=== PATIENT | female | born 1935 | race Caucasian/White ===

== ENCOUNTER 2016-08-28 10:04 | Emergency (ER) | payer OTHER ==
[2016-08-28 10:31] LABS: MANUAL DIFF NEEDED? NO
--- NOTE | 2016-08-28 10:34 | ED EKG INTERP ---
EKG Interpretation - EKG Time of EKG reading by physician:: 10:14 EKG Read and Signed by:: Jovany Landeros EKG Interpretation (*Must complete 3 of following elements*): Abnormal Rate: 47 Rhythm: sinus kev Drums: normal QRS: normal Attestation - Scribe Verification/Attestation Scribe:: Eloisa Dash Acting as Scribe for:: Jovany Landeros Scribe documention review:: This chart was documented by a scribe and accurately reflects the service the provider performed and the decisions made by the provider.
[2016-08-28 10:37] LABS: BASO% 0.3 % (0.0-0.8); EOS# 0.13 X1000 (0.0-0.7); EOS% 1.9 % (0.0-10.0); HEMATOCRIT 41.2 % (37.0-47.0); HEMOGLOBIN 13.6 g/dL (12.0-16.0); LYMPH# 2.51 X1000 (1.2-3.4); LYMPH% 36.4 % (20.5-51.1); MCV 90.9 FL (81-99); MONO# 0.86 X1000 (0.11-0.59); MONO% 12.5 % (1.7-9.3); MPV 9.4 FL (7.4-10.4); NEUT% 48.9 % (42.2-75.2); PLT 237 X1000 (130-400); RBC 4.53 XMIL (4.2-5.4)
[2016-08-28 10:54] LABS: INR 1.05; PROTIME 10.7 Seconds (9.2-11.7); PTT 23.5 Seconds (22.0-36.0)
[2016-08-28 10:59] LABS: AGAP 4; ALBUMIN 3.9 g/dL (3.5-5.0); ALKALINE PHOSPHATASE 64 U/L (32-104); BUN 18 mg/dL (8-22); CALCIUM 9.1 mg/dL (8.8-10.2); CHLORIDE 106 mmol/L (98-107); CK PROFILE 46 U/L (24-173); COSMO 285; GOT 19 U/L (10-30); GPT 23 U/L (10-36); MAGNESIUM 1.8 mg/dL (1.5-2.7); POTASSIUM 4.3 mmol/L (3.5-5.1); SODIUM 142 mmol/L (136-145); TCO2 32 mmol/L (25-35); TOTAL BILIRUBIN 0.25 mg/dL (0.20-1.00); TOTAL PROTEIN 6.5 g/dL (6.3-8.3)
--- NOTE | 2016-08-28 11:04 | EKG Report ---
Test Performed on : 08/28/2016 10:14:39 AM Test Reason : Chest Pain Blood Pressure : / mmHG Vent. Rate : 047 BPM Atrial Rate : 047 BPM P-R Int : 152 ms QRS Dur : 096 ms QT Int : 450 ms P-R-T Axes : 063 -01 029 degrees QTc Int : 398 ms Sinus bradycardia. Otherwise normal ECG When compared with ECG of 30-NOV-2015 08:40, No significant change was found Unconfirmed Result
--- NOTE | 2016-08-28 11:09 | Diag Imaging Result Document ---
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 The heart size and pulmonary vascularity are within normal limits. Compared to 11/30/2015, there has been no significant change in the appearance of the chest. IMPRESSION: No evidence of acute disease.
--- NOTE | 2016-08-28 13:58 | PROVIDER DOCUMENTATION ---
HPI-Chest Pain <Pk Ozuna - Last Filed: 08/28/16 14:45> - General Source: patient, family - History of Present Illness-CP Location: reports: central Chest Pain Radiation: reports: no radiation Quality of Pain: reports: burning Severity in ED: mild Onset/Duration: 24 hours ago Timing: still present Nitro Today/Relief: no nitro taken today Aspirin Treatment Today: 325 mg x 1, provided by ED Similar Symptoms Previously?: Yes Recently Seen Here or By Another Healthcare Provider: No <Eloisa Dash - Last Filed: 08/28/16 14:47> - General Chief Complaint: Chest Pain Stated Complaint: ELEVATED BP/CP Time Seen by Provider: 08/28/16 13:53 Allergies/Adverse Reactions: Patient Allergies Allergy/AdvReac Type Severity Reaction Status Date / Time Iodinated Contrast Media - Allergy Severe SWELLING Verified 08/28/16 13:22 Oral and Home Medications: Home Medication List Medication Instructions Recorded Confirmed Last Taken Type Aspirin 81 mg PO DAILY 11/30/15 08/28/16 1 Week Ago History Atenolol 50 mg PO DAILY 11/30/15 08/28/16 08/28/16 07:30 History Calcium Carbonate/Vitamin D3 1 tab PO BID 11/30/15 08/28/16 08/28/16 07:30 History [Calcium + Vitamin D Tablet] [place]-3 Fatty Acids/Fish Oil [Fish 1 cap PO DAILY 11/30/15 08/28/16 08/28/16 07: 30 History Oil 1,000 mg Softgel] Raloxifene [Evista] 60 mg PO DAILY 11/30/15 08/28/16 08/28/16 07:30 History Simvastatin [Zocor] 20 mg PO HS 11/30/15 08/28/16 08/28/16 07:30 History Bismuth Subsalicylate [Maalox] 525 mg PO Q4-6H PRN PRN #1 08/28/16 Unknown Rx oral.susp Famotidine [Pepcid] 20 mg PO DAILY #20 tablet 08/28/16 Unknown Rx - History of Present Illness-CP Nature of Presenting Problem: Pt is a 81 yof that presents to er with cc of central chest pain since yesterday intermittent lasting 10 minutes at a time. Reports upon sitting up gets mild relief. Denies sob,orthopnea,edema,n,v. Quit smoking 40 years ago. Pt family also complains of pt low heart rate reports it normally is in the 60's and past two months it has been staying in the 40's. (Eloisa Dash) Review of Systems - Adult - REVIEW OF SYSTEMS - ADULT Constitutional: denies: chills, fever, fatique Eyes: reports: no symptoms reported Ears, Nose, Mouth & Throat: denies: ear pain, sinus problem, throat pain Cardiovascular: reports: see HPI, chest pain, irregular heart rate. denies: edema, orthopnea, palpitations, poor circulation, PND, syncope Respiratory: denies: cough, shortness of breath, wheezing Gastrointestinal: reports: no symptoms reported Genitourinary: reports: no symptoms reported Musculoskeletal: reports: no symptoms reported Integumentary: reports: no symptoms reported Neurological: reports: no symptoms reported Psychiatric: reports: no symptoms reported Endocrine: reports: no symptoms reported Hematologic/Lymphatic: reports: no symptoms reported Allergic/Immunologic: reports: no symptoms reported All Other Systems: Reviewed and Negative <Eloisa Dash - Last Filed: 08/28/16 14:47> Past History - Adult - PAST MEDICAL HISTORY-ADULT Review of Records: reports: Nursing Assessment Review, Medications Reviewed Cardiovascular: reports: HTN, hyperlipidemia - PRIOR SURGERIES/PROCEDURES Surgical/Procedure History: reports: hernia repair, other (arthroscopy) - IMMUNIZATION STATUS Childhood Immunizations: See Nurse Assessment Flu Vaccine: See Nurse Assessment - FAMILY HISTORY Family History: other (mother,brother and sister cardiac hx) - SOCIAL HISTORY Smoking: quit greater than 1 year, other Substance Use: none/never <Eloisa Dash - Last Filed: 08/28/16 14:47> Physical Exam-General - PHYSICAL EXAM-ADULT Initial Vital Signs Reviewed: Yes - CONSTITUTIONAL General Appearance: appears well, alert, no apparent distress - EYES Eyes: PERRL/EOMI - CARDIOVASCULAR Cardiovascular: bradycardia - GASTROINTESTINAL (ABDOMEN) Abdominal Exam: normal bowel sounds, non tender, soft, no organomegaly, no pulsatile mass - MUSCULOSKELETAL Extremity: normal range of motion, non-tender, no pedal edema, normal capillary refill - SKIN Integumentary: normal color, normal turgor, warm/dry - NEUROLOGIC Neurologic: grossly normal - PSYCHIATRIC Psych/Mental Status: normal mood/affect, normal thought content, normal thought process, oriented x 3 <Eloisa Dash - Last Filed: 08/28/16 14:47> Progress <Pk Ozuna - Last Filed: 08/28/16 14:45> - EKG 1 Time of EKG reading by physician:: 13:30 EKG Read and Signed by:: Jovany Landeros EKG Interpretation (*Must complete 3 of following elements*): Abnormal Rate: 48 Rhythm: sinus kev [place]: normal QRS: LVH (minmal voltage for lvh may be normal variant) SC Interval: normal <Eloisa Dash - Last Filed: 08/28/16 14:47> - PLAN OF CARE/RESULTS Progress/Plan/Lab Results: Orders Category Date Time Status CHEST-2 VIEWS [RAD] Stat Exams 08/28/16 10:18 Completed CBC WITH ELECTRONIC DIFF [HEME] Stat Lab 08/28/16 10:25 Completed CK PROFILE [SP CHEM] Stat Lab 08/28/16 10:25 Completed CK TOTAL [CHEM] Stat Lab 08/28/16 13:41 Received COMPREHENSIVE METABOLIC PANEL [CHEM] Stat Lab 08/28/16 10:25 Completed D-DIMER [CHEM] Stat Lab 08/28/16 10:25 Completed MAGNESIUM [CHEM] Stat Lab 08/28/16 10:25 Completed PRO B-NATRIURETIC PEPTIDE Stat Lab 08/28/16 10:25 Completed PROTIME WITH INR [COAG] Stat Lab 08/28/16 10:25 Completed PTT [COAG] Stat Lab 08/28/16 10:25 Completed TROPONIN T Stat Lab 08/28/16 10:25 Completed TROPONIN T Stat Lab 08/28/16 13:41 Received TROPONIN T Stat Lab 08/28/16 13:53 Ordered EKG [EKG] Stat Ther 08/28/16 10:18 Draft EKG [EKG] Stat Ther 08/28/16 13:27 Ordered Vital Signs - 24 hr 08/28/16 08/28/16 10:16 13:25 Temperature 98.5 F Pulse Rate 52 L 48 L Respiratory 18 20 Rate Blood Pressure 172/67 168/72 O2 Sat by Pulse 97 96 Oximetry Laboratory Tests 08/28/16 08/28/16 08/28/16 10:25 10:25 10:25 WBC 6.89 RBC 4.53 Hgb 13.6 Hct 41.2 MCV 90.9 MCH 30.0 MCHC 33.0 RDW Std Deviation 13.1 Plt Count 237 MPV 9.4 Neut % (Auto) 48.9 Lymph % (Auto) 36.4 Tripp % (Auto) 12.5 H Eos % (Auto) 1.9 Baso % (Auto) 0.3 Neut # (Auto) 3.37 Lymph # (Auto) 2.51 Tripp # (Auto) 0.86 H Eos # (Auto) 0.13 Baso # (Auto) 0.02 PT INR PTT (Actin FS) D-Dimer < 0.10 Sodium 142 Potassium 4.3 Chloride 106 Carbon Dioxide 32 Anion Gap 4 BUN 18 Creatinine 0.6 Estimated GFR/1.73 m2 > 60 BUN/Creatinine Ratio 30 Glucose 94 Calculated Osmolality 285 Calcium 9.1 Magnesium 1.8 Total Bilirubin 0.25 AST 19 ALT 23 Alkaline Phosphatase 64 Creatine Kinase 46 Troponin T Clb-T-Slxmdkvstsv Pept Total Protein 6.5 Albumin 3.9 Globulin 2.6 Albumin/Globulin Ratio 1.5 08/28/16 08/28/16 08/28/16 10:25 10:25 10:25 WBC RBC Hgb Hct MCV MCH MCHC RDW Std Deviation Plt Count MPV Neut % (Auto) Lymph % (Auto) Tripp % (Auto) Eos % (Auto) Baso % (Auto) Neut # (Auto) Lymph # (Auto) Tripp # (Auto) Eos # (Auto) Baso # (Auto) PT 10.7 INR 1.05 PTT (Actin FS) 23.5 D-Dimer Sodium Potassium Chloride Carbon Dioxide Anion Gap BUN Creatinine Estimated GFR/1.73 m2 BUN/Creatinine Ratio Glucose Calculated Osmolality Calcium Magnesium Total Bilirubin AST ALT Alkaline Phosphatase Creatine Kinase Troponin T < 0.010 Eaz-X-Pgohlsnmzcm Pept 199 Total Protein Albumin Globulin Albumin/Globulin Ratio Laboratory Tests 08/28/16 08/28/16 08/28/16 10:25 10:25 10:25 WBC 6.89 RBC 4.53 Hgb 13.6 Hct 41.2 MCV 90.9 MCH 30.0 MCHC 33.0 RDW Std Deviation 13.1 Plt Count 237 MPV 9.4 Neut % (Auto) 48.9 Lymph % (Auto) 36.4 Tripp % (Auto) 12.5 H Eos % (Auto) 1.9 Baso % (Auto) 0.3 Neut # (Auto) 3.37 Lymph # (Auto) 2.51 Tripp # (Auto) 0.86 H Eos # (Auto) 0.13 Baso # (Auto) 0.02 PT INR PTT (Actin FS) D-Dimer < 0.10 Sodium 142 Potassium 4.3 Chloride 106 Carbon Dioxide 32 Anion Gap 4 BUN 18 Creatinine 0.6 Estimated GFR/1.73 m2 > 60 BUN/Creatinine Ratio 30 Glucose 94 Calculated Osmolality 285 Calcium 9.1 Magnesium 1.8 Total Bilirubin 0.25 AST 19 ALT 23 Alkaline Phosphatase 64 Creatine Kinase 46 Troponin T Zls-B-Ranibfdoown Pept Total Protein 6.5 Albumin 3.9 Globulin 2.6 Albumin/Globulin Ratio 1.5 08/28/16 08/28/16 08/28/16 10:25 10:25 10:25 WBC RBC Hgb Hct MCV MCH MCHC RDW Std Deviation Plt Count MPV Neut % (Auto) Lymph % (Auto) Tripp % (Auto) Eos % (Auto) Baso % (Auto) Neut # (Auto) Lymph # (Auto) Tripp # (Auto) Eos # (Auto) Baso # (Auto) PT 10.7 INR 1.05 PTT (Actin FS) 23.5 D-Dimer Sodium Potassium Chloride Carbon Dioxide Anion Gap BUN Creatinine Estimated GFR/1.73 m2 BUN/Creatinine Ratio Glucose Calculated Osmolality Calcium Magnesium Total Bilirubin AST ALT Alkaline Phosphatase Creatine Kinase Troponin T < 0.010 Xqf-C-Yygrkhedoqh Pept 199 Total Protein Albumin Globulin Albumin/Globulin Ratio 08/28/16 08/28/16 13:41 13:41 WBC RBC Hgb Hct MCV MCH MCHC RDW Std Deviation Plt Count MPV Neut % (Auto) Lymph % (Auto) Tripp % (Auto) Eos % (Auto) Baso % (Auto) Neut # (Auto) Lymph # (Auto) Tripp # (Auto) Eos # (Auto) Baso # (Auto) PT INR PTT (Actin FS) D-Dimer Sodium Potassium Chloride Carbon Dioxide Anion Gap BUN Creatinine Estimated GFR/1.73 m2 BUN/Creatinine Ratio Glucose Calculated Osmolality Calcium Magnesium Total Bilirubin AST ALT Alkaline Phosphatase Creatine Kinase 45 Troponin T < 0.010 Mue-T-Qozrtlndrpy Pept Total Protein Albumin Globulin Albumin/Globulin Ratio (Eloisa Dash) Departure - Departure Time of Disposition Order: 14:45 <Pk Ozuna - Last Filed: 08/28/16 14:45> - Departure Time of Disposition Order: 14:44 Certified Medical Emergency: Emergent <Eloisa Dash - Last Filed: 08/28/16 14:47> - Departure DIAGNOSIS: Atypical chest pain Acid reflux Qualifiers: Esophagitis presence: esophagitis presence not specified Qualified Code(s): K21.9 - Gastro-esophageal reflux disease without esophagitis Disposition: HOME 01 Condition: Stable Additional Instructions: Follow up with pcp ED Follow Up Instructions: You have been treated by a care provider in the Emergency Department. These instructions are being provided to you so you can have an understanding of how to care for yourself upon discharge. Upon discharge from the Emergency Department, you are responsible for making arrangements for follow-up care by a physician of your choice. Take all prescribed medications as directed. Return to the Emergency Department immediately for any new or worsening symptoms. You may call the Physician Referral phone number at [phone] to obtain a list of Physicians who are taking new patients. Prescriptions: Bismuth Subsalicylate [Maalox] 525 mg PO Q4-6H PRN PRN #1 oral.susp PRN Reason: Indigestion Famotidine [Pepcid] 20 mg PO DAILY #20 tablet Referrals: Michael Russ [Primary Care Provider] - Attestation - Scribe Verification/Attestation Scribe:: Eloisa Dash Acting as Scribe for:: Pk Ozuna Scribe documention review:: This chart was documented by a scribe and accurately reflects the service the provider performed and the decisions made by the provider. <Eloisa Dash - Last Filed: 08/28/16 14:47> Physician Attestation
[2016-08-28 14:14] VITALS: BP 137/79
--- NOTE | 2016-08-28 14:51 | EKG Report ---
Test Performed on : 08/28/2016 1:30:47 PM Test Reason : 2 hour repeat Blood Pressure : / mmHG Vent. Rate : 048 BPM Atrial Rate : 048 BPM P-R Int : 142 ms QRS Dur : 092 ms QT Int : 470 ms P-R-T Axes : 029 -03 022 degrees QTc Int : 419 ms Sinus bradycardia. Minimal voltage criteria for LVH, may be normal variant Borderline ECG When compared with ECG of 28-AUG-2016 10:14, (Unconfirmed) No significant change was found Unconfirmed Result
== END 2016-08-28 15:00 | disposition home or self-care (01) ==
LOC: ED 10:04
DX: K21.9 Gastro-esophageal reflux disease without esophagitis (principal); R07.89 Other chest pain; I49.9 Cardiac arrhythmia, unspecified; I10 Essential (primary) hypertension; E78.5 Hyperlipidemia, unspecified; R00.1 Bradycardia, unspecified; R94.31 Abnormal electrocardiogram [ECG] [EKG]; Z87.891 Personal history of nicotine dependence; Z79.899 Other long term (current) drug therapy; Z79.82 Long term (current) use of aspirin
CPT/HCPCS: 71020; 80053; 82550; 83735; 83880; 84484; 85025; 85379; 85610; 85730; 93005; 99283